=== PATIENT | female | born 1990 | race African-American/Black ===

== ENCOUNTER 2021-02-01 03:17 | Emergency (ER) | payer OTHER ==
[2021-02-01 03:36] LABS: HCT 43.9 % (37.0-47.0); HGB 14.4 g/dl (12.5-16.0); MCH 28.5 pg (25.0-31.0); MCHC 32.8 g/dL (32.0-36.0); MCV 86.9 fL (78.0-100.0); MPV 9.6 fL (6.0-9.5); RBC 5.05 M/uL (4.20-5.40); RDW 14.4 % (11.5-14.0); WBC 6.7 K/uL (4.0-10.5)
[2021-02-01 03:53] LABS: BUN/CREAT RATIO (CALC) 13.9 RATIO; CREATININE 1.15 mg/dL (0.51-0.95); POTASSIUM 3.2 mmol/L (3.5-5.1)
== END 2021-02-01 10:35 | disposition home or self-care (01) ==
LOC: FER 03:17
PROVIDERS: Emergency Medicine
DX: R07.89 Other chest pain (principal); I12.9 Hypertensive chronic kidney disease with stage 1 through stage 4 chronic kidney disease, or unspecified chronic kidney disease; N18.1 Chronic kidney disease, stage 1; Z79.899 Other long term (current) drug therapy
CPT/HCPCS: 36415; 71045; 71250; 71275; 80048; 83880; 84443; 84484; 85379; 93005; J3490; J7030; Q9967